=== PATIENT | female | born 1980 | race African-American/Black ===

== ENCOUNTER 2022-03-21 12:36 | Emergency (ER) | payer OTHER ==
[~2022-03-21] VITALS: Ht 160 cm; Wt 104.5 kg
[2022-03-21] MEDS ORDERED: APIX5TAB PO (12:49)
[2022-03-21] MEDS ORDERED: GABA-1181 PO (12:49)
[2022-03-21] MEDS ORDERED: METF-1211 PO (12:49)
[2022-03-21 14:53] LABS: GLUCOSE,POINT OF CARE 221 MG/DL (70-110)
[2022-03-21 15:20] LABS: COVID AG,FIA SOURCE NASOPHARYNGEAL
[2022-03-21 15:22] LABS: BASOPHILS % (AUTO) 0.8 % (0.0-2.0); EOSINOPHILS % (AUTO) 3.7 % (1.0-6.0); HEMATOCRIT 40.2 % (36-46); LYMPHOCYTES # (AUTO) 1.1 K/uL (1.0-4.8); LYMPHOCYTES % (AUTO) 15.1 % (22.0-44.0); MEAN CORPUSCULAR HEMOGLOBIN 28.1 pg (26.0-34.0); MEAN CORPUSCULAR HGB CONC 32.4 G/dL (31.0-37.0); MEAN CORPUSCULAR VOLUME 87 fL (80-100); MONOCYTES # (AUTO) 0.5 K/uL (0.1-1.0); MONOCYTES % (AUTO) 7.4 % (2.0-9.0); NEUTROPHILS # (AUTO) 5.1 K/uL (1.8-7.7); PLATELET COUNT (AUTO) 320 K/uL (150-450); RED BLOOD CELL COUNT(AUTO) 4.63 MIL/uL (4.00-5.20); RED CELL DISTRIBUTION WIDTH 15.6 % (11.5-14.5)
[2022-03-21 15:26] LABS: CALCIUM, TOTAL 8.7 mg/dL (8.8-10.5); CREATININE 1.19 mg/dL (0.60-1.30)
[2022-03-21 15:39] LABS: ALBUMIN 2.9 g/dL (3.4-5.0); BILIRUBIN,TOTAL 0.8 mg/dL (0.1-1.0); TOTAL PROTEIN, SERUM 7.5 g/dL (6.4-8.2)
[2022-03-21 15:40] LABS: INFLUENZA TYPE A NEGATIVE FOR TYPE A (NEGATIVE); INFLUENZA TYPE B NEGATIVE FOR TYPE B (NEGATIVE)
[2022-03-21] MEDS ORDERED: FUROSEMIDE 20 MG/2 ML VIAL IVP ONE ×2 (17:00→18:30)
[2022-03-21] MEDS ORDERED: METF-81 PO (18:37)
[2022-03-21] MEDS ORDERED: EMPA10TA3 PO (18:37)
[2022-03-21] MEDS ORDERED: DULA0.75 SQ (18:37)
[2022-03-21] MEDS ORDERED: SPIR-37 PO (18:37)
[2022-03-21] MEDS ORDERED: FURO20TA4 PO (18:37)
[2022-03-21] MEDS ORDERED: TRAZ-252 PO (18:37)
[2022-03-21] MEDS ORDERED: TORS20TA5 PO (18:37)
[2022-03-21] MEDS ORDERED: HYDR-4527 PO (18:37)
[2022-03-21] MEDS ORDERED: ATOR-2 PO (18:37)
[2022-03-21] MEDS ORDERED: DOCU-385 PO (20:44)
[2022-03-21] MEDS ORDERED: SENN-187 PO (20:44)
[2022-03-21] MEDS ORDERED: IBUP-1506 PO (20:44)
[2022-03-21] MEDS ORDERED: PANT-31 PO (20:44)
[2022-03-21] MEDS ORDERED: SACU1TAB PO (20:44)
[2022-03-21] MEDS ORDERED: SENNOSIDES 8.6 MG TABLET PO ONE (20:45)
[2022-03-21 21:30] VITALS: BP 126/81
== END 2022-03-21 21:57 | disposition home or self-care (01) ==
LOC: EMS 12:41
DX: I50.9 Heart failure, unspecified (principal); E11.9 Type 2 diabetes mellitus without complications; F17.210 Nicotine dependence, cigarettes, uncomplicated; Z79.84 Long term (current) use of oral hypoglycemic drugs; Z79.899 Other long term (current) drug therapy; Z20.822 Contact with and (suspected) exposure to COVID-19
CPT/HCPCS: 99285; 96374; 71045; 87426; 80053; 82962; 83880; 84484; 84702; 85025; 87804; 36415; 93005; 96376; J1940